=== PATIENT | male | born 1995 | race Caucasian/White ===

== ENCOUNTER 2025-11-08 11:28 | Emergency (ER) | payer OTHER ==
[~2025-11-08] VITALS: Ht 182.9 cm; Wt 78.5 kg
[2025-11-08 11:36] VITALS: BP 129/55; PULSE 72; RESP 18; O2SAT 99
--- NOTE | 2025-11-08 12:08 | RADIOLOGY REPORT ---
CHEST RADIOGRAPH INDICATION: Persistent cough TECHNIQUE: Frontal and lateral view of the chest was obtained COMPARISON: None FINDINGS: Lines and Tubes: None Lungs: Right lower lobe pneumonia Pleura: No effusion. No pneumothorax. Cardiomediastinal contours: Unremarkable Bones: Unremarkable IMPRESSION: Right lower lobe pneumonia.
--- NOTE | 2025-11-08 12:27 | Physician Documentation ---
History of Present Illness ~ Chief Complaint: Cold, cough & congestion Stated Complaint: SICK, COUGH AND PHLEGM Time Seen by MD: 11:38 Primary Medical Doctor: none HPI This is a 30-year-old male who presents with three weeks of progressively worsening productive cough with subjective fever and new onset of right-sided lower chest pain with coughing. Patient reports no other acute symptoms or concerns including no difficulty breathing. Medication Reconciliation Allergies: Coded Allergies: No Known Allergies (Unverified , 11/08/25) Scheduled Amox Tr/Potassium Clavulanate 875/125 MG (Augmentin 875/125 MG), 1 TAB PO BID Scheduled PRN albuterol inhaler (Pro-Air Inhaler), 1-2 PUFFS PO Q4H PRN for shortness of breath Past Medical History Past Medical History: Asthma (Exercise-induced) Review of Systems ROS As stated above in the HPI, otherwise all systems are reviewed and negative. Physical Exam Vital Signs: Temperature: 100.3, Source: Oral, Heart Rate: 72, Respiratory Rate: 18, BP: 129/55, Pulse Oximetry: 99, Weight: 78.500 Oxygen Flow Rate: 0 Physical Exam VITALS: Reviewed and as above. GENERAL: Alert, nontoxic appearing, no apparent distress. RESPIRATORY: No increased work of breathing, no respiratory distress, speaking in full clear sentences, slightly diminished lung sounds in right base otherwise clear in all ambriz CV: Regular rate and rhythm no murmur SKIN: Warm and dry NEURO: GCS 15 Progress Results/Orders Results/Orders Orders - BRITTANY PALENCIA [employer] Chest,Two Views (11/08/25 11:37) Completed Orders - BRITTANY PALENCIA [employer] Chest,Two Views (11/08/25 11:37) Amox Tr/Potassium Clavulanate (Augmentin (11/08/25 12:40) Medications Received in ER Medications (Trade) Dose Ordered Sig/Sara Route PRN Reason Start Time Stop Time Status Last Admin Dose Admin (Augmentin 875-125mg tablet) 1 tab ONCE ONCE PO 11/08/25 12:40 11/08/25 12:41 DC 11/08/25 12:43 1 TAB Vital Signs 11/08/25 11/08/25 11:36 12:46 Temp 100.3 100.3 Pulse 72 Resp 18 B/P (MAP) 129/55 Pulse Ox 99 O2 Flow Rate 0 EKG/XRAY/CT/US/VASC/MRI Chest X-Ray : Additional Comments Exam: CHEST,TWO VIEWS CHEST RADIOGRAPH INDICATION: Persistent cough TECHNIQUE: Frontal and lateral view of the chest was obtained COMPARISON: None FINDINGS: Lines and Tubes: None Lungs: Right lower lobe pneumonia Pleura: No effusion. No pneumothorax. Cardiomediastinal contours: Unremarkable Bones: Unremarkable IMPRESSION: Right lower lobe pneumonia. Electronically Signed by:YEHUDA MARTINES MD Date & Time: 11/08/25 1206 Dictated by: YEHUDA MARTINES MD Dictation date and time: 11/08/25 1148 I have reviewed and agree with the radiology report. I have reviewed and interpreted the imaging as: Focal consolidation seen in right lower lobe. Medical Decision Making Additional information obtaine: N/A Findings This otherwise well-appearing 30-year-old male presents with three weeks of progressively worsening productive cough with recent subjective fever and onset of right lower chest wall pain with coughing. Patient's physical exam was relatively benign though of note slightly diminished lung sounds in right lower lung ambriz, chest x-ray demonstrated evidence of right lower lobe pneumonia, most likely community-acquired. Hospitalization considered though patient is well-appearing and vital signs are stable without evidence of sepsis or hypoxia, patient is appropriate for outpatient follow up, with shared decision-making patient will opt for outpatient management and oral antibiotics will be prescribed, patient provided careful return to care precautions which he verbalized understanding of. Patient additionally provided home care instructions and follow up instructions which he verbalized understanding of. Differential Dx:Considerations: Include: Allergic rhinitis, Influenza, Otitis media, Peritonsillar abscess, Pharyngitis-Diphtheria, Pharyngitis-Streptoccal, Pharyngitis-Viral, Pneumonia, Pnuemonitis, Sinusitis, URI Departure Time of Disposition: 12:32 Disposition: 01 HOME / SELF CARE / HOMELESS Impression: Primary Impression: Community acquired pneumonia Qualified Codes: J18.9 - Pneumonia, unspecified organism Condition: Improved Discharge Instructions: Community-Acquired Pneumonia, Adult Additional Instructions: Please take the antibiotics as prescribed, please use your previously prescribed inhaler as previously prescribed for cough or shortness of breath (I have refilled this prescription for you). Please follow up with your primary care provider in the next few days. Please return to the emergency department for a [place] new or worsening concerning symptoms including but not limited to worsening shortness of breath, worsening chest pain, or a fever over 100.4 that does not lower with ibuprofen or Tylenol. Referrals: NO PRIMARY CARE PROVIDER (PCP) Prescriptions albuterol inhaler (Pro-Air Inhaler) 8.5 Gm Inhaler 1-2 PUFFS PO Q4H PRN for shortness of breath, #1 INH Prov: BRITTANY PALENCIA 11/08/25 Amox Tr/Potassium Clavulanate 875/125 MG (Augmentin 875/125 MG) 875 Mg-125 Mg Tablet 1 TAB PO BID for 5 Days, #10 TAB Prov: BRITTANY PALENCIA 11/08/25 Education Educated: Patient Educated regarding: diagnosis, treatment, prognosis, need for follow up (As st ated above in the HPI, otherwise all systems are reviewed and negative.) Signature Scribe Signature: No scribe Attestation: The note accurately reflects work and decisions made by me.ELODIA Morales 11/08/25 20:32 BRITTANY PALENCIA Nov 08, 2025 12:27
[2025-11-08] MEDS ORDERED: ALBU8HFA PO (12:37)
[2025-11-08] MEDS ORDERED: AMOX-580 PO (12:37)
[2025-11-08] MEDS: amox tr/potassium clavulanate 875/125mg TAB PO ONE (12:43)
[2025-11-08 12:46] VITALS: TEMP 100.3
== END 2025-11-08 12:46 | disposition home or self-care (01) ==
LOC: ER 11:29
DX: J18.9 Pneumonia, unspecified organism (principal)
CPT/HCPCS: 71046; 99283